=== PATIENT | female | born 1985 | race African-American/Black ===

== ENCOUNTER 2020-03-17 13:58 | Outpatient (CLI) | payer BC, SELFPAY ==
--- NOTE | 2020-03-17 14:06 | ECG_ITS ---
Measurements Intervals [place] Rate: 66 P: 64 IN: 147 QRS: 24 QRSD: 88 T: 37 QT: 402 QTc: 423 Interpretive Statements SINUS RHYTHM BORDERLINE R WAVE PROGRESSION, ANTERIOR LEADS BASELINE ARTIFACT- I, II, III, AVR, AVL, AVF, V1-V6 BORDERLINE ECG Electronically Signed On 03-17-2020 14:55:52 [employer] by Nolan Zamarripa D.O.
[2020-03-17 14:45] LABS: Hematocrit 33.8 % (37.0-47.0); Hemoglobin 10.9 g/dL (12.0-15.0)
== END 2020-03-17 13:59 | disposition home or self-care (01) ==
LOC: ANHSURGERY 14:06
PROVIDERS: Anesthesiology; PCP Nurse Practitioner Family; Visit Provider Otolaryngology
DX: Z98.890 Other specified postprocedural states (principal); D11.0 Benign neoplasm of parotid gland; Z01.818 Encounter for other preprocedural examination; R94.31 Abnormal electrocardiogram [ECG] [EKG]
CPT/HCPCS: 36415; 85014; 85018; 93005

== ENCOUNTER 2020-03-20 02:19 | Day surgery (SDC) | payer BC, SELFPAY ==
[2020-03-16 12:59] VITALS: BMI 29.3
[2020-03-20] VITALS (11 sets, daily range): BP systolic 109–153; BP diastolic 69–95; PULSE 61–80; RESP 12–20; TEMP 36.4–37.2; O2SAT 97–100
[2020-03-20] MEDS: LACTATED RINGERS 1,000 ML 30 ML IV CONT ×2 (09:15→14:30)
--- NOTE | 2020-03-20 09:18 | WPDHPUPDATE1 ---
History and Physical Update Update Date/Time: 03/20/20 09:18 left superficial parotidectomy w/ FN monitoring History and Physical has been reviewed, including an updated exam of the patient. There are NO changes in the patient's condition. Risks, benefits, and alternatives have been discussed and questions answered. Patient agrees to proceed with procedure.
--- NOTE | 2020-03-20 09:28 | WPDANESEPPF ---
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 Patient Data Age: 34 Gender: F Height: 5 ft 4 in Weight: 79 kg Last Vital Signs Temp 36.4 C 03/20/20 08:55 Pulse 70 03/20/20 08:55 Resp 16 03/20/20 08:55 BP 120/71 03/20/20 08:55 Pulse Ox 100 03/20/20 08:55 Allergies Allergy/AdvReac Type Severity Reaction Status Date / Time No Known Allergies Allergy Verified 03/20/20 08:50 Home Medications Medication Instructions Recorded Confirmed Type Isai-Mag Zinc II 1 tablet PO DAILY 03/16/20 03/16/20 History PNV cmb#95-ferrous fumarate-FA 1 tablet PO DAILY 03/16/20 03/16/20 History [] albuterol sulfate [Ventolin HFA] 2 puff INHALATION QID PRN 03/16/20 03/16/20 History cholecalciferol (vitamin D3) 125 mcg PO DAILY 03/16/20 03/16/20 History fluticasone propionate 2 spray INTRANASAL DAILY 03/16/20 03/16/20 History montelukast 10 mg PO DAILY 03/16/20 03/16/20 History Patient hx anesthesia problems: none Family hx anesthesia problems: none PMFSH Past Medical History Medical History (Updated 03/20/20 @ 09:28 by Ollie Mays MD) Asthma Overweight Surgical History Surgical History (Updated 03/20/20 @ 09:28 by Ollie Mays MD) History of ankle surgery Social History Social History Smoking status: Never smoker Living arrangements: with family Spiritual care concerns: No Anes - Eval Final PreProcedure Day of Procedure 03/20/20 09:28 Patient weight: overweight Heart: regular rate and rhythm Lungs: clear to auscultation Airway: Mallampati scale class II Neurological: alert and oriented Last oral intake: >/= 8 hours ASA classification: II Emergent: no Anesthetic plan: proceed Anesthesia type and monitoring: general ETT and standard monitoring Informed Consent: The patient's anesthetic plan and its attendant risks and benefits were discussed with the patient/family/POA. Questions were solicited and answers provided to the satisfaction of the patient/family/POA.
[2020-03-20] MEDS: ceFAZolin 2 GM/D5W 50 ML 2 GM/50 ML BAG IVPB (09:34)
[2020-03-20] MEDS: LIDO 1%/EPINEPHRINE 1:100,000 50 ML VIAL INFILTRATE (10:12)
[2020-03-20] MEDS: ceFAZolin SODIUM 1 GM VIAL 2 GM IV PUSH (13:24)
--- NOTE | 2020-03-20 14:34 | PM.PROC ---
Procedure Note - Detailed Date of procedure: 03/20/20 Pre-op diagnosis: Benign Neoplasm Of Parotid Gland Post-op diagnosis: same Procedure performed: Left deep lobe parotidectomy with facial nerve dissection Description of procedure: After informed consent was obtained the time out procedure was performed the patient was brought to the operating room placed on the operating table in the supine position. The patient was placed under general endotracheal anesthesia. A modified Scott incision was marked out in the patient's left preauricular crease. 1% lidocaine with one 100,000 epinephrine was injected into the marked incision. The patient was prepped and draped in the usual fashion. A #15 scalpel was used to make the skin incision. This was carried down to the level of the greater auricular nerve.this nerve was dissected superiorly up to the patient's earlobe. The preauricular incision was also carried down to the level of the parotid fascia. The underlying tumor was easily palpated. Next the preauricular incision was carried down along the tragal cartilage and the tragal pointer using a fine dissector and bipolar electrocautery. The greater auricular nerve was preserved.? The posterior belly of the digastric muscle was identified after retracting the sternocleidomastoid muscle laterally. The main trunk of the facial nerve was identified in its normal anatomic position and preserved. The nerve intraoperative monitor was utilized throughout the case and the facial nerve was confirmed using the prass probe.? Next the facial nerve was dissected laterally to the pes and the upper lobe and lower divisions were identified. The cystic tumor was deep the the facial nerve and was found to be between the upper and lower divisions off of the pes, about 3cm in size and splaying distal branches of the nerve. Meticulous dissection was performed to mobilize the mass off of the branches of the nerve. Due to how the tumor was intimately involving numerous nerve branches, the decision was made to open the cyst and drain it. Once this was done, the decompressed cyst was much more easily able to mobilize free from deep tissue and surrounding nerves. It was then passed off as specimen. Once the specimen was passed off the field the wound bed was carefully irrigated using warm saline solution, there is no evidence of any significant bleeding. The upper and lower divisions of the facial nerve were then stimulated at 1 milliamp, and found to have greater than 1000 microvolts of stimulation. The wound was then closed in layers using 3-0 Vicryl and? 5-0 Prolene suture. A fluff dressing along with a jaw bra were then placed on the patient. No drain was needed The patient was then awakened from general anesthesia, extubated and transferred to recovery in stable condition. Anesthesia: GETA Surgeon: Chinmay Matos MD Estimated blood loss (mL): 20 Drains: No Packing: No Pathology: yes (left deep lobe parotid) Complications: No immediate complications Condition: stable Disposition: same day Findings: Cyst, deep lobe of left parotid gland
[2020-03-20] MEDS: ONDANSETRON INJ 4 MG/2 ML VIAL IV PUSH (15:04)
[2020-03-20] MEDS: fentaNYL CITRATE INJ (*CRX) 100 MCG/2 ML VIAL 25 MCG IV PUSH ×2 (15:11→15:16)
[2020-03-20] MEDS: oxyCODONE HCL (*CRX) 5 MG TAB IR PO (16:11)
== END 2020-03-20 17:04 | disposition home or self-care (01) ==
PROVIDERS: PCP Nurse Practitioner Family; Visit Provider Otolaryngology
PROC: (CPT 42410; principal; 2020-03-20 10:00)
DX: D11.0 Benign neoplasm of parotid gland (principal); J45.909 Unspecified asthma, uncomplicated
CPT/HCPCS: 42415; 88305; 88307; A9270; J0330; J0690; J1170; J2250; J2405; J2704; J3010; J7120